=== PATIENT | male | born 1970 | race African-American/Black ===

== ENCOUNTER 2017-12-19 12:56 | Inpatient (IN) | payer OTHER ==
[~2017-12-19] VITALS: Ht 180.3 cm; Wt 79.4 kg
--- NOTE | ~2017-12-19 | EKG ---
[address] [place] [address] ELECTROCARDIOGRAM REPORT Name: JERODDEMETRIO L Room #: 354-P [facility] [place] .R.#: [id number] Admission: 12/19/17 Attend Phys: Live Victor MD Discharge: Date of : 74 Report #: [id number] THIS REPORT FOR: //name// [facility] ED Test Date: 2017-12-19 Test Time: 13:22:38 Pat Name: DEMETRIO NEWSOME Department: Room: Gender: M Generalist: JLAMBERTZ : 1970 Requested By: Lucian Jose Order Number: [id number] MD: Jarret Epperson Measurements Intervals [place] Rate: 138 P: 76 NV: 118 QRS: 47 QRSD: 94 T: 54 QT: 307 QTc: 465 Interpretive Statements Sinus tachycardia Otherwise no significant abnormality No previous ECG available for comparison Electronically Signed On 12-20-2017 7:55:18 CDT by Jarret Epperson [email or web address] <ELECTRONICALLY SIGNED> By: Jarret Epperson MD, [facility] 12/20/17 [id number] 1322 Jarret Epperson MD, FACC /EPI
[2017-12-19 14:00] LABS: HEMATOCRIT 43.7 % (42.0-52.0); HEMOGLOBIN 14.6 gm/dL (14.0-18.0); MCH 31.8 pg (26.0-34.0); MCHC 33.4 g/dL (28.0-37.0); MCV 95.1 fL (80.0-100.0); PLATELET COUNT 233 thou/uL (150-400); RDW 12.9 % (10.5-14.5); WBC 7.5 thou/uL (4.0-11.0)
[2017-12-19 14:11] LABS: ANION GAP 12 mmol/L (7-16); BUN 9 mg/dL (7-18); CALCIUM 8.8 mg/dL (8.5-10.1); CHLORIDE 96 mmol/L (98-107); CO2 22 mmol/L (21-32); CREATININE 1.1 mg/dL (0.7-1.3); GLUCOSE 135 mg/dL (74-106); POTASSIUM 3.9 mmol/L (3.5-5.1); SODIUM 130 mmol/L (136-145)
[2017-12-19 14:15] LABS: ALBUMIN 4.3 g/dL (3.4-5.0); DIRECT BILIRUBIN 0.2 mg/dL (<0.1-0.3); MAGNESIUM 1.6 mg/dL (1.8-2.4); SGOT 144 U/L (15-37); SGPT 78 U/L (30-65); TOTAL BILIRUBIN 0.8 mg/dL (<0.1-1.0); TOTAL PROTEIN 8.1 g/dL (6.4-8.2); TROPONIN-I <0.06 ng/mL (<0.06)
[2017-12-19 14:32] LABS: AMP/METHAMP Negative (Negative); BARBITURATES Negative (Negative); BENZODIAZEPINES Negative (Negative); COCAINE Negative (Negative); METHADONE Negative (Negative); OPIATES Negative (Negative); PCP Negative (Negative)
[2017-12-19 14:49] LABS: ABSOLUTE NEUTROPHILS 3.6 thou/uL (1.4-8.2)
[2017-12-19 16:34] VITALS: BP 169/106
[2017-12-19 16:45] VITALS: BP 170/108
[2017-12-19 17:09] VITALS: BP 169/98
[2017-12-19 18:56] LABS: BASOPHILS 0.6 % (0.0-2.0); EOSINOPHILS 0.3 % (0.0-3.0); HEMATOCRIT 41.4 % (42.0-52.0); HEMOGLOBIN 14.1 gm/dL (14.0-18.0); LYMPHOCYTES 19.4 % (24.0-44.0); MCH 31.7 pg (26.0-34.0); MCV 93.4 fL (80.0-100.0); MONOCYTES 9.3 % (1.0-8.0); PLATELET COUNT 198 thou/uL (150-400); POLYS 70.4 % (36.0-66.0); RBC 4.44 mil/uL (4.50-6.00); RDW 12.9 % (10.5-14.5); WBC 8.5 thou/uL (4.0-11.0)
[2017-12-19 19:57] VITALS: BP 185/128
[2017-12-19] MEDS ORDERED: ZESTRIL10 MG PO (20:19)
[2017-12-19] MEDS ORDERED: CLONIDINE0.1 PO (20:21)
[2017-12-19 21:52] VITALS: BP 147/106
[2017-12-19 23:44] VITALS: BP 118/80
[2017-12-20 03:40] VITALS: BP 117/83
[2017-12-20 05:33] LABS: CALCIUM 7.9 mg/dL (8.5-10.1); CREATININE 0.9 mg/dL (0.7-1.3); POTASSIUM 3.9 mmol/L (3.5-5.1); TOTAL BILIRUBIN 0.7 mg/dL (<0.1-1.0); TOTAL PROTEIN 6.2 g/dL (6.4-8.2)
[2017-12-20 05:46] LABS: HEMATOCRIT 39.9 % (42.0-52.0); HEMOGLOBIN 13.4 gm/dL (14.0-18.0); MCH 31.9 pg (26.0-34.0); MCHC 33.7 g/dL (28.0-37.0); MCV 94.6 fL (80.0-100.0); RBC 4.22 mil/uL (4.50-6.00); RDW 12.6 % (10.5-14.5); WBC 6.8 thou/uL (4.0-11.0)
[2017-12-20 07:52] VITALS: BP 123/94
[2017-12-20 08:43] VITALS: BP 123/94
[2017-12-20 11:52] VITALS: BP 128/90
[2017-12-20] MEDS ORDERED: NORVASC5 MG PO (12:13)
[2017-12-20 12:16] VITALS: BP 128/90
[2017-12-21] MEDS ORDERED: ATIVAN0.5 MG PO (22:10)
[2017-12-22 00:06] LABS: HAV IgM AB (ANTI-HAV IgM) 0.09 (Negative); HEPATITIS B SURFACE AG Negative (Negative); HEPATITIS C VIRUS AB <0.1 (0.0-0.9)
== END 2017-12-20 13:20 | disposition home or self-care (01) | DRG 433 ==
LOC: ER 12:56 → EROBS 16:19 → 3W 17:18
PROVIDERS: Emergency Medicine; Hospitalist
DX: K70.10 Alcoholic hepatitis without ascites (principal); F10.239 Alcohol dependence with withdrawal, unspecified; I10 Essential (primary) hypertension; F41.9 Anxiety disorder, unspecified; F32.9 Major depressive disorder, single episode, unspecified; F17.210 Nicotine dependence, cigarettes, uncomplicated; Z79.899 Other long term (current) drug therapy
CPT/HCPCS: 10879

== ENCOUNTER 2017-12-21 21:04 | Emergency (ER) | payer OTHER ==
[~2017-12-21] VITALS: Ht 180.3 cm; Wt 79.4 kg
--- NOTE | ~2017-12-21 | EKG ---
[address] [employer] [place] [address] ELECTROCARDIOGRAM REPORT Name: DEMETRIO NEWSOME [facility] [id number] Admission: 12/21/17 Attend Phys: Discharge: 12/21/17 Date of : 74 Report #: [id number] THIS REPORT FOR: //name// [facility] ED Test Date: 2017-12-21 Test Time: 21:18:57 Pat Name: DEMETRIO NEWSOME Department: Room: Gender: Nail Galvanizer: NAVNEET : 1970 Requested By: Chio Cardona Order Number: [id number] MD: Jarret Epperson Measurements Intervals [place] Rate: 87 P: 62 OR: 138 QRS: 52 QRSD: 100 T: 53 QT: 419 QTc: 504 Interpretive Statements Sinus rhythm Prolonged QT interval Compared to ECG 12/19/2017 13:22:38 Prolonged QT interval now present Sinus tachycardia no longer present Electronically Signed On 12-22-2017 7:30:25 CDT by Jarret Epperson [email or web address] <ELECTRONICALLY SIGNED> By: Jarret Epperson MD, [facility] 12/22/17729 17 17 Jarret Epperson MD, FACC /EPI
[~2017-12-21 21:04] MED LIST: CLONIDINE0.1 PO; NORVASC5 MG PO; ZESTRIL10 MG PO
[2017-12-21 21:23] LABS: ABSOLUTE NEUTROPHILS 4.9 thou/uL (1.4-8.2); BASOPHILS 0.5 % (0.0-2.0); EOSINOPHILS 1.4 % (0.0-3.0); HEMATOCRIT 42.2 % (42.0-52.0); HEMOGLOBIN 14.3 gm/dL (14.0-18.0); LYMPHOCYTES 28.7 % (24.0-44.0); MCHC 33.8 g/dL (28.0-37.0); MCV 94.7 fL (80.0-100.0); MONOCYTES 9.8 % (1.0-8.0); PLATELET COUNT 209 thou/uL (150-400); POLYS 59.6 % (36.0-66.0); RBC 4.46 mil/uL (4.50-6.00); RDW 12.8 % (10.5-14.5); WBC 8.2 thou/uL (4.0-11.0)
[2017-12-21 21:30] LABS: ANION GAP 8 mmol/L (7-16); BUN 8 mg/dL (7-18); CALCIUM 9.6 mg/dL (8.5-10.1); CHLORIDE 99 mmol/L (98-107); CO2 28 mmol/L (21-32); CREATININE 0.9 mg/dL (0.7-1.3); GLUCOSE 110 mg/dL (74-106); POTASSIUM 4.3 mmol/L (3.5-5.1); SODIUM 135 mmol/L (136-145)
[2017-12-21 21:39] LABS: TROPONIN-I <0.06 ng/mL (<0.06)
[2017-12-21] MEDS ORDERED: ATIVAN0.5 MG PO (22:10)
== END 2017-12-21 22:57 | disposition home or self-care (01) ==
LOC: ER 21:04
PROVIDERS: Physician Assistant
DX: I10 Essential (primary) hypertension (principal); F10.239 Alcohol dependence with withdrawal, unspecified; F17.210 Nicotine dependence, cigarettes, uncomplicated

== ENCOUNTER 2019-02-27 09:43 | Emergency (ER) | payer OTHER ==
[~2019-02-27] VITALS: Ht 180.3 cm; Wt 86.2 kg
[~2019-02-27 09:43] MED LIST changes: +ATIVAN0.5 MG PO
[2019-02-27] MEDS ORDERED: BACTRIM DS TAB1 EACH PO (11:26)
[2019-02-27 11:33] VITALS: BP 150/94
== END 2019-02-27 11:32 | disposition home or self-care (01) ==
LOC: ER 09:43
DX: L02.213 Cutaneous abscess of chest wall (principal); I10 Essential (primary) hypertension; F17.210 Nicotine dependence, cigarettes, uncomplicated; Z98.890 Other specified postprocedural states

== ENCOUNTER 2020-03-15 10:29 | Emergency (ER) | payer OTHER ==
[~2020-03-15] VITALS: Ht 180.3 cm; Wt 83.9 kg
[~2020-03-15 10:29] MED LIST changes: +BACTRIM DS TAB1 EACH PO
[2020-03-15] MEDS ORDERED: BACTRIM DS TAB1 EACH PO (12:32)
[2020-03-15 13:15] VITALS: BP 144/88
== END 2020-03-15 13:23 | disposition home or self-care (01) ==
LOC: ER 10:29
DX: L02.31 Cutaneous abscess of buttock (principal); I10 Essential (primary) hypertension; F17.210 Nicotine dependence, cigarettes, uncomplicated; Z79.899 Other long term (current) drug therapy